=== PATIENT | male | born 1975 | race Two or more races ===

== ENCOUNTER 2017-07-09 01:48 | Emergency (ER) | payer MEDICAID ==
[~2017-07-09] VITALS: Ht 167.6 cm; Wt 99.8 kg
[2017-07-09 02:00] VITALS: BP 143/89
[2017-07-09 02:29] LABS: Basophils # (auto) 0.1 uL; Basophils % (auto) 0.4 % (0.0-2.0); Eosinophils # (auto) 0.1 uL; Eosinophils % (auto) 0.7 % (0.0-7.0); Hemoglobin 13.7 g/dL (13.5-17.5); Lymphocytes # (auto) 1.8 uL; Lymphocytes % (auto) 10.4 % (10.0-50.0); Mean Corpuscular Hemoglobin 29.2 pg (28.0-32.0); Mean Corpuscular Hgb Conc. 33.4 g/dL (32.0-36.0); Mean Corpuscular Volume 87.3 fL (80.0-100.0); Monocytes # (auto) 1.1 uL; Monocytes % (auto) 6.1 % (0.0-12.0); Neutrophils # (auto) 14.5 uL; Neutrophils % (auto) 82.4 % (37.0-80.0); Platelet Count (auto) 399 10^3/uL (140-450); Red Cell Distribution Width 13.5 % (11.8-14.3); White Blood Cell 17.6 10^3/uL (4.4-10.8)
[2017-07-09 02:50] LABS: Urine Bilirubin Negative (Negative); Urine Blood 2+ /uL (Negative); Urine Color Yellow (Yellow); Urine Glucose Normal (Normal); Urine Ketone Negative (Negative); Urine Nitrite Negative (Negative); Urine RBC 362 /hpf (0 - 3); Urine Squamous Epithelial Cell FEW /hpf (<5); Urine Urobilinogen Normal (Negative); Urine pH 5.5 (5.0-8.0)
[2017-07-09 03:03] LABS: Albumin 3.6 g/dL (3.4-5.0); Alkaline Phosphatase 117 U/L (45-117); Amylase 31 U/L (25-115); Anion Gap 10 (5-15); Aspartate Aminotransferase 25 U/L (15-37); Bilirubin, Total 0.4 mg/dL (0.2-1.0); Blood Urea Nitrogen 15 mg/dL (7-18); Calcium 8.4 mg/dL (8.5-10.1); Carbon Dioxide 25 mmol/L (21-32); Chloride 104 mmol/L (98-107); GFR African American 106 mL/min; GFR Non-African American 88 mL/min; Glucose 148 mg/dL (74-106); Magnesium 2.3 mg/dL (1.6-2.6); Potassium 3.8 mmol/L (3.5-5.1); Sodium 139 mmol/L (136-145)
== END 2017-07-09 03:37 | disposition left against medical advice (07) ==
LOC: ER 01:48
DX: R10.32 Left lower quadrant pain (principal); R11.2 Nausea with vomiting, unspecified; Z53.21 Procedure and treatment not carried out due to patient leaving prior to being seen by health care provider
CPT/HCPCS: 36415; 74176; 80053; 81001; 82150; 83690; 83735; 84484; 85025